=== PATIENT | male | born 1950 | race Caucasian/White ===

== ENCOUNTER 2016-11-03 15:20 | Observation (INO) | payer MEDICARE ==
[2016-11-03] MEDS ORDERED: NORMAL SALINE 1,000 ML IV ONE ×2 (16:09→17:53)
[2016-11-03] MEDS ORDERED: ONDANSETRON HCL/PF 2 MG/ML VIAL IV ONE (16:09)
--- NOTE | 2016-11-03 16:22 | ERNOTE ---
Medical Problem HPI - General Chief Complaint: Nausea/Vomiting Time Seen by Provider: 11/03/16 15:36 Source: patient Exam Limitations: no limitations - Immun/Allergies/Home Medications Immunizations: IMMUNIZATION HX Immunizations Up to Date Yes History of Influenza Vaccine Yes Allergies/Adverse Reactions: Allergies No Known Allergies Allergy (Verified 11/03/16 15:36) - History of Present History Narrative: Patient states that he has been outside in the heat over the past several days and feels as though he is markedly dehydrated. He has been having some episodes of nausea and vomiting his mouth feels excessively dry and because of this he is unable taken any oral fluids. He states he has done this before and these are very similar symptoms to whenhe gets dehydrated. Timing: constant, getting worse Severity: moderate Review of Systems - Review of Systems Constitutional: Present: See HPI EYE: Present: no symptoms reported ENT: Present: no symptoms reported Respiratory: Present: no symptoms reported Cardiology: Present: no symptoms reported Gastrointestinal/Abdominal: Present: nausea, vomiting Genitourinary: Present: no symptoms reported Musculoskeletal: Present: no symptoms reported Skin: Present: no symptoms reported Neurological: Present: no symptoms reported Endocrine: Present: no symptoms reported Hematologic/Lymphatic: Present: no symptoms reported Psych: Present: no symptoms reported - Patient's Past Medical History Patient History - Medical: Obesity Patient History - Cardiac/Respiratory: COPD Patient History - Surgical Procedures: Cholecystectomy, Total Knee Replacement Patient History - Other: None - Social History Living Situations: home Psych History: No pertinent hx Smoking Status: Never smoker Alcohol Use: none Drug Use: none - Immunizations Immunizations Up to Date: Yes History of Influenza Vaccine: Yes Physical Exam - Physical Exam General Appearance: Present: wd/wn, alert, moderate distress Eye Exam: Normal inspection: bilateral, PERRL: bilateral Ears, Nose, Throat: Present: normal pharynx, dry mucous membranes Neck: Present: normal inspection, nontender Respiratory: Present: no respiratory distress, normal breath sounds, no accessory muscle use, chest nontender, lungs clear Cardiovascular/Chest: Present: no murmur, normal peripheral pulses, tachycardia Gastrointestinal/Abdominal: Present: normal bowel sounds, nontender, nondistended, soft, no organomegaly Rectal Exam: Present: deferred Back Exam: Present: normal inspection, normal range of motion Extremity Exam: Present: normal inspection, non-tender, no edema, normal range of motion Neurological Exam: Present: alert, oriented, normal mood/affect Skin Exam: Present: normal color, warm/dry Lymphatic Exam: Present: no adenopathy ED Progress - Results and Orders Patient's Lab Results:: I have reviewed the patient's lab results. - Vital Signs Patient's Vital Signs:: I have reviewed the patient's vital signs. Vital Signs: Vital Signs 11/03/16 15:24 Temperature 36.3 C L Pulse Rate 107 H Respiratory 22 H Rate O2 Sat by Pulse 95 Oximetry - X-Ray X-Ray #1 X-Ray: chest Interpretation: Interp. by me - patient states that after the liter of IV fluids he felt better however the chest x-ray has appearance of congestive heart failure to me - Progress/Reassessment Chief Complaint: Nausea/Vomiting Plan - Plan Plan: While the patient is somewhat clinically improved he still feels weak and dehydrated. I'm somewhat perplexed by the chest x-ray that while it is a portable it still appears to have a component of congestive heart failure. Patient feels improved after a liter of fluid but still feels too weak to go home and we will place him in an observation bed for the night continue more IV hydration per his request and start him on some oral antibiotics for his chronic skin sores which appear to be folliculitis. Departure - Departure Clinical Impression: Dehydration Morbid obesity Qualifiers: Obesity type: unspecified obesity type Qualified Code(s): E66.01 - Morbid ( severe) obesity due to excess calories Disposition: [facility] Condition: Fair
[2016-11-03 16:25] LABS: Hematocrit 43.7 % (42.0-52.0); Hemoglobin 14.7 gm/dL (13.5-18.0); Mean Corpuscular Hemoglobin 30.6 pg (27-31); Mean Corpuscular Hgb Conc 33.6 g/dl (32-36); Mean Platelet Volume 9.3 fl (6.0-9.5); Neutrophil # 8.7 K/mm3 (1.3-6.0); Platelet Count 221 K/mm3 (150-450); Red Cell Distribution Width 14.4 % (11.5-14.0); White Blood Count 9.9 K/mm3 (4.0-10.5)
[2016-11-03] MEDS ORDERED: ONDANSETRON HCL/PF 2 MG/ML VIAL ONE (16:33)
[2016-11-03 16:43] LABS: Albumin * 3.5 gm/dl (3.4-5.0); Anion Gap 11.4 mmol/L (6.8-13.8); BUN/Creatinine Ratio 11.1 (9.0-21.6); Bilirubin, Total 0.6 mg/dL (0.0-1.1); Ca. Corrected For Albumin 9.5 mg/dL (8.4-10.2); Calcium * 9.4 mg/dL (7.9-10.9); Magnesium 1.8 mg/dL (1.2-2.8); Potassium 4.4 mmol/L (3.4-4.6); Total Protein 7.6 gm/dL (6.2-8.2)
[2016-11-03 16:45] LABS: Troponin I 0.048 ng/ml (0.00-0.10)
[2016-11-03 17:37] LABS: Urine Appearance Clear; Urine Color Yellow
[2016-11-03 17:38] LABS: Urine Bacteria None Seen; Urine Bilirubin Negative (NEGATIVE); Urine Blood 10 /ul (NEGATIVE); Urine Ketone 50 mg/dL (NEGATIVE); Urine Nitrite Negative (NEGATIVE); Urine Protein 100 mg/dL (NEGATIVE); Urine RBC 0-5 /hpf (0-5); Urine Urobilinogen Normal (NORMAL); Urine WBC 0-5 /hpf (0-5)
[2016-11-03] MEDS ORDERED: SULFAMETHOXAZOLE/TRIMETHOPRIM 1 TAB TABLET PO ONE (17:53)
[2016-11-03] MEDS ORDERED: SULFAMETHOXAZOLE/TRIMETHOPRIM 1 TAB TABLET ONE (18:00)
--- NOTE | 2016-11-03 20:08 | HP ---
Chief Complaint - Chief Complaint Date of Service: 11/03/16 Time of Service: 20:08 Chief Complaint: generalized weakness History of Present Illness: Grzegorz is a 66 [address] old patient of Dr Elias with a PMH of asthma, chronic back pain, chronic respiratory failure on O2, RODNEY wears bipap, morbid obesity s/p gastric bypass in 1981 and OA who presented to the ER with c/o severe weakness after vomiting repeatedly overnight the previous night. c/o body aches and chills. has chronic dyspnea with no acute increase in shortness of breath. denies cp. Patient given IV bolus in ER but felt too weak to go home. Patient to be admitted for generalized weakness and dehydration for iv fluids overnight. - Patient's Past Medical History Patient History - Medical: Depression, Obesity - morbid Patient History - Cardiac/Respiratory: COPD, Home O2 Use, CPAP/BiPAP Home Use, Sleep Apnea Patient History - Cancer: No Hx of Cancer Patient History - Surgical Procedures: Cholecystectomy, Total Knee Replacement Patient History - Other: None - Family History Father Family History - Medical: Family History - Cardiac/Respiratory: CHF Mother Family History - Medical: Alzheimer's Disease - Social History Living Situations: home Psych History: Hx of Depression Smoking Status: Never smoker Have you smoked in the past 12 months: No Do you dip or chew tobacco: No Patient requests Smoking Cessation Consult: No Alcohol Use: none Drug Use: none - Immunizations Immunizations Up to Date: Yes History of Influenza Vaccine: Yes Review Of Systems (GEN) - Review of Systems Generalized/Overall Review: Present: Weakness, Chills, Malaise, Fatigue. Absent : Fever EENTM: Present: No Symptoms Reported Respiratory: Present: Shortness of Breath - chronic. Absent: Cough, Wheezing Cardiac: Present: No Symptoms Reported Abdominal: Present: Nausea, Vomiting. Absent: Hematemesis, Abdominal Pain, Constipation, Diarrhea, Melena, Bright blood from rectum Genitourinary: Present: No Symptoms Reported Musculoskeletal: Present: No Symptoms Reported Neurological: Present: No Symptoms Reported Skin: Present: No Symptoms Reported Endocrine: Present: No Symptoms Reported Misc: All systems neg except as marked Immunizations: IMMUNIZATION HX Immunizations Up to Date Yes History of Influenza Vaccine Yes Allergies/Adverse Reactions: Allergies Allergy/AdvReac Type Severity Reaction Status Date / Time No Known Allergies Allergy Verified 11/03/16 15:36 Home Medications: HOME MEDICATIONS Diclofenac Sodium 75 mg PO BID 11/03/16 [Last Taken Unknown] Furosemide [Lasix] 40 mg PO DAILY 11/03/16 [Last Taken Unknown] Ibuprofen [Motrin] 600 mg PO TID 11/03/16 [Last Taken Unknown] Ibuprofen/Diphenhydramine HCl [Advil Pm Liqui-Gels] 1 cap PO HS 11/03/16 [Last Taken Unknown] Imipramine HCl [Tofranil] 50 mg PO QAM 11/03/16 [Last Taken Unknown] Imipramine HCl [Tofranil] 100 mg PO HS 11/03/16 [Last Taken Unknown] Multivitamin [Multivitamins] 1 each PO DAILY 11/03/16 [Last Taken Unknown] Potassium Chloride [Klor-Con M20] 20 meq PO DAILY 11/03/16 [Last Taken Unknown] Exam - Exam Vital Signs: Vital Signs - Last Taken Temp 37.0 C 11/03/16 18:15 Pulse 103 H 11/03/16 18:15 Resp 30 H 11/03/16 18:15 BP 96/77 11/03/16 18:15 Pulse Ox 94 11/03/16 18:15 Constitutional: Present: Alert, Oriented x3, Cooperative, No distress, Obese - morbid, Looks Older than stated age ENT Exam: Present: hearing grossly normal Eye Exam: bilateral eye: normal inspection Neck: Present: supple Back Exam: Present: no CVA tenderness, no vertebral tenderness Breasts: Present: Exam deferred Respiratory: Present: lungs clear, no respiratory distress, no accessory muscle use Cardiovascular/Chest: Present: normal peripheral pulses, regular rate, rhythm, no JVD, no murmur Peripheral Pulses: dorsalis-pedis (R): 2+, dorsalis-pedis (L): 2+, radial (R): 2 +, radial (L): 2+ Abdomen: Present: soft, nontender, nondistended, obese /Rectal: Present: Exam deferred Extremity: Present: lower extremity edema - trace to +1 lower extremity edema bilat Skin Exam: Present: warm/dry, no cyanosis, other - folliculitis present Diagnostic Studies: Laboratory Results WBC 9.9 K/mm3 (4.0-10.5) 11/03/16 16:18 RBC 4.80 M/mm3 (4.7-6.0) 11/03/16 16:18 Hgb 14.7 gm/dL (13.5-18.0) 11/03/16 16:18 Hct 43.7 % (42.0-52.0) 11/03/16 16:18 MCV 91.0 fl (78-100) 11/03/16 16:18 MCH 30.6 pg (27-31) 11/03/16 16:18 MCHC 33.6 g/dl (32-36) 11/03/16 16:18 RDW 14.4 % (11.5-14.0) H 11/03/16 16:18 Plt Count 221 K/mm3 (150-450) 11/03/16 16:18 MPV 9.3 fl (6.0-9.5) 11/03/16 16:18 Immature Gran % (Auto) 0.30 % (0.001-0.429) 11/03/16 16:18 Immature Gran # (Auto) 0.03 K/mm3 (0.000-0.0310) 11/03/16 16:18 Neutrophils % 88.0 % (42-75.0) H 11/03/16 16:18 Lymphocytes % 7.9 % (20-51) L 11/03/16 16:18 Monocytes % 3.7 % (0.0-9) 11/03/16 16:18 Eosinophils % 0.0 % (0.0-3.0) 11/03/16 16:18 Basophils % 0.1 % (0.0-1.0) 11/03/16 16:18 Nucleated RBC % 0.0 k/mm3 (0-1) 11/03/16 16:18 Neutrophils # 8.7 K/mm3 (1.3-6.0) H 11/03/16 16:18 Lymphocytes # 0.8 k/mm3 (1.5-3.5) L 11/03/16 16:18 Monocytes # 0.4 k/mm3 (0.0-1.0) 11/03/16 16:18 Eosinophils # 0.0 k/mm3 (0.0-0.7) 11/03/16 16:18 Absolute Basophils 0.0 k/mm3 (0.0-0.1) 11/03/16 16:18 Sodium 142 mmol/L (132-142) 11/03/16 16:18 Plasma Sodium 143 mmol/L (130-142) H 11/03/16 16:18 Potassium 4.4 mmol/L (3.4-4.6) 11/03/16 16:18 Chloride 105 mmol/L (97-106) 11/03/16 16:18 Carbon Dioxide 30.0 mmol/L (24-32.6) 11/03/16 16:18 Anion Gap 11.4 mmol/L (6.8-13.8) 11/03/16 16:18 BUN 11 mg/dL (6-23) 11/03/16 16:18 Creatinine 0.99 mg/dL (0.4-1.4) 11/03/16 16:18 Est GFR (Non-Af Amer) 81 mL/min (60-130) 11/03/16 16:18 BUN/Creatinine Ratio 11.1 (9.0-21.6) 11/03/16 16:18 Random Glucose 134 mg/dL (70-110) H 11/03/16 16:18 Calcium 9.4 mg/dL (7.9-10.9) 11/03/16 16:18 Calcium Adj for Albumin 9.5 mg/dL (8.4-10.2) 11/03/16 16:18 Magnesium 1.8 mg/dL (1.2-2.8) 11/03/16 16:18 Total Bilirubin 0.6 mg/dL (0.0-1.1) 11/03/16 16:18 AST 32 U/L (0-48) 11/03/16 16:18 ALT 39 U/L (19-67) 11/03/16 16:18 Alkaline Phosphatase 62 U/L (50-170) 11/03/16 16:18 Troponin I 0.048 ng/ml (0.00-0.10) 11/03/16 16:18 Total Protein 7.6 gm/dL (6.2-8.2) 11/03/16 16:18 Albumin 3.5 gm/dl (3.4-5.0) 11/03/16 16:18 Urine Color Yellow 11/03/16 17:19 Urine Appearance Clear 11/03/16 17:19 Urine pH 6.0 pH (5.0-7.0) 11/03/16 17:19 Ur Specific [place] 1.030 SP.GR. (1.005-1.030) 11/03/16 17:19 Urine Protein 100 mg/dL (NEGATIVE) H 11/03/16 17:19 Urine Glucose (UA) Negative mg/dL (NEGATIVE) 11/03/16 17:19 Urine Ketones 50 mg/dL (NEGATIVE) 11/03/16 17:19 Urine Blood 10 /ul (NEGATIVE) H 11/03/16 17:19 Urine Nitrate Negative (NEGATIVE) 11/03/16 17:19 Urine Bilirubin Negative mg/dl (NEGATIVE) 11/03/16 17:19 Prot Sulfosalicylic Acd 4+ mg/dL (0) H 11/03/16 17:19 Urine Urobilinogen Normal EU/dl (NORMAL) 11/03/16 17:19 Ur Leukocyte Esterase Negative /ul (NEGATIVE) 11/03/16 17:19 Urine RBC 0-5 /hpf (0-5) 11/03/16 17:19 Urine WBC 0-5 /hpf (0-5) 11/03/16 17:19 Ur Epithelial Cells 0-5 /hpf (0-5) 11/03/16 17:19 Urine Bacteria None seen (NONE) 11/03/16 17:19 Urine Culture Comments No culture indicated 11/03/16 17:19 Assessment/Plan - Narrative Narrative: Generalized weakness - troponin negative - will draw a 2nd troponin 6 hours from the first as a precaution given weakness - likely secondary to n/v overnight - hydrate with iv fluids overnight - patient states he has had episodes like this in the past and iv fluids has helped. dehydration - secondary to n/v overnight - see plan above abnormal cxr - no s/s of chf - lower extremity edema is mild and chronic per pt. - lungs sound clear - BNP drawn and not significantly elevated - cxr abnormality likely artifact due to patient's size. folliculitis - likely secondary to patient's body habitus - bactrim ds start in ER - continue while admitted. RODNEY - continue bipap while admitted chronic respiratory failure on O2 - cont O2 while admitted. Code status: DNR VTE: early ambulation GI Proph: protonix po. - Assessment/Plan (1) Dehydration Problem: Acute (2) Generalized weakness Problem: Acute (3) Abnormal CXR Problem: Acute (4) Chronic respiratory failure not affecting current episode of care Problem: Chronic (5) RODNEY treated with BiPAP Problem: Chronic (6) Morbid obesity Problem: Chronic Qualifiers: Obesity type: unspecified obesity type Qualified Code(s): E66.01 - Morbid ( severe) obesity due to excess calories (7) Folliculitis Problem: Acute
[2016-11-03] MEDS ORDERED: BELLADONNA ALKALOIDS/PHENOBARB 60 ML BTL PO ONE (20:09)
[2016-11-03] MEDS ORDERED: LIDOCAINE HCL 20 ML UDC PO ONE (20:09)
[2016-11-03] MEDS ORDERED: MAG HYDROX/ALUMINUM HYD/SIMETH 30 ML UDC PO ONE (20:09)
[2016-11-03] MEDS ORDERED: IBUPROFEN PO SCH (21:00)
[2016-11-03] MEDS ORDERED: DIPHENHYDRAMINE HCL PO SCH (21:00)
[2016-11-03] MEDS ORDERED: diphenhydrAMINE HCL 25 MG CAPSULE PO PRN (22:14)
[2016-11-03] MEDS ORDERED: IMIPRAMINE HCL 25 MG TABLET PO SCH (22:15)
[2016-11-03] MEDS ORDERED: DICLOFENAC SODIUM 50 MG TABLET.DR PO ONE (22:34)
[2016-11-03] MEDS ORDERED: MAG HYDROX/ALUMINUM HYD/SIMETH 30 ML UDC ONE (22:35)
[2016-11-03] MEDS ORDERED: LIDOCAINE HCL 20 ML UDC ONE (22:36)
[2016-11-03] MEDS ORDERED: BELLADONNA ALKALOIDS/PHENOBARB 60 ML BTL ONE (22:36)
[2016-11-03] MEDS: DICLOFENAC SODIUM 75 MG TABLET.DR PO SCH (22:41)
[2016-11-04] MEDS ORDERED: NORMAL SALINE 1,000 ML IV PRN (03:36)
[2016-11-04] MEDS: DICLOFENAC SODIUM 75 MG TABLET.DR PO SCH (08:25)
[2016-11-04 08:27] VITALS: BP 120/68
[2016-11-04] MEDS ORDERED: IMIPRAMINE HCL 25 MG TABLET PO SCH (09:00)
[2016-11-04] MEDS ORDERED: SULFAMETHOXAZOLE/TRIMETHOPRIM 1 TAB TABLET PO SCH (09:00)
[2016-11-04] MEDS ORDERED: IBUPROFEN 600 MG TABLET PO SCH (09:00)
[2016-11-04] MEDS ORDERED: FUROSEMIDE 40 MG TABLET PO SCH (09:00)
[2016-11-04] MEDS ORDERED: POTASSIUM CHLORIDE 20 MEQ TABLET.SA PO SCH (09:00)
[2016-11-04] MEDS ORDERED: MULTIVITAMINS 1 CAP CAPSULE PO SCH (09:00)
--- NOTE | 2016-11-04 09:13 | DS ---
(1) Generalized weakness Problem: Acute (2) Morbid obesity Problem: Chronic Qualifiers: Obesity type: unspecified obesity type Qualified Code(s): E66.01 - Morbid ( severe) obesity due to excess calories Description of Stay: ADMISSION DATE: 11/03/2016 DISCHARGE DATE: 11/04/2016 ADMISSION HPI by PRABHU Gorman: Grzegorz is a 66 [address] patient of Dr Elias with a PMH of asthma, chronic back pain, chronic respiratory failure on O2, RODNEY wears bipap, morbid obesity s/p gastric bypass in 1981 and OA who presented to the ER with c/o severe weakness after vomiting repeatedly overnight the previous night. c/o body aches and chills. has chronic dyspnea with no acute increase in shortness of breath. denies cp. Patient given IV bolus in ER but felt too weak to go home. Patient to be admitted for generalized weakness and dehydration for iv fluids overnight. HOSPITAL COURSE: Patient monitored overnight with no issues or concerns. Patients presentation and complaints of generalized weakness are likely multifactorial and related to the patient being a bit more active than usual on a day with temperatures over 90F, morbid obesity and severe deconditioning. The patient was started on Bactrim DS in the emergency room for suspected folliculitis. These antibiotics have been discontinued as the patients findings are chronic nature and there are no signs of acute infection. Patient was discharged home in stable condition the following morning and asked to follow-up with his primary care doctor within 1 week. FOLLOW-UP APPOINTMENTS: -PCP within 1 week NEW OR CHANGED MEDICATIONS: None DISCONTINUED MEDICATIONS: None RADIOLOGY REPORTS: Single view chest x-ray on 11/03/2016 showed: The cardiac silhouette is at least mildly enlarged. The mediastinum and hilum are within normal limits. There is prominence of the central pulmonary vascularity without alveolar edema. Lung gregory are otherwise clear. I do not see evidence for infiltrate or effusion. IMPRESSION: At least mildly enlarged cardiac silhouette. Prominence of central pulmonary vascularity consistent with pulmonary congestion /early interstitial edema. Procedures Performed: none Results and Findings: Laboratory Tests 11/03/16 11/03/16 11/03/16 16:18 16:18 16:18 WBC 9.9 Hgb 14.7 Hct 43.7 MCV 91.0 Plt Count 221 Plasma Sodium 143 H Potassium 4.4 Chloride 105 Carbon Dioxide 30.0 Anion Gap 11.4 BUN 11 Creatinine 0.99 Est GFR (Non-Af Amer) 81 BUN/Creatinine Ratio 11.1 Random Glucose 134 H Calcium 9.4 Calcium Adj for Albumin 9.5 Magnesium 1.8 Total Bilirubin 0.6 AST 32 ALT 39 Alkaline Phosphatase 62 Troponin I 0.048 B-Natriuretic Peptide 287 H Total Protein 7.6 Albumin 3.5 Urine Color Urine Appearance Urine pH Ur Specific [place] Urine Protein Urine Glucose (UA) Urine Ketones Urine Blood Urine Nitrate Urine Bilirubin Prot Sulfosalicylic Acd Urine Urobilinogen Ur Leukocyte Esterase Urine RBC Urine WBC Ur Epithelial Cells Urine Bacteria 11/03/16 11/03/16 17:19 22:40 WBC Hgb Hct MCV Plt Count Plasma Sodium Potassium Chloride Carbon Dioxide Anion Gap BUN Creatinine Est GFR (Non-Af Amer) BUN/Creatinine Ratio Random Glucose Calcium Calcium Adj for Albumin Magnesium Total Bilirubin AST ALT Alkaline Phosphatase Troponin I 0.074 B-Natriuretic Peptide Total Protein Albumin Urine Color Yellow Urine Appearance Clear Urine pH 6.0 Ur Specific [place] 1.030 Urine Protein 100 H Urine Glucose (UA) Negative Urine Ketones 50 Urine Blood 10 H Urine Nitrate Negative Urine Bilirubin Negative Prot Sulfosalicylic Acd 4+ H Urine Urobilinogen Normal Ur Leukocyte Esterase Negative Urine RBC 0-5 Urine WBC 0-5 Ur Epithelial Cells 0-5 Urine Bacteria None seen Discharge Disposition: Home self care Disposition: Home self-care Condition: Stable Discharge Activity: Activity as tolerated Discharge Diet: Other - Heart healthy diet Additional Patient Instructions (free text): Follow-up with PCP within 1 week Complete Home Medications List: Complete Home Medication List: Diclofenac Sodium 75 mg PO BID 11/03/16 Furosemide [Lasix] 40 mg PO DAILY 11/03/16 Ibuprofen [Motrin] 600 mg PO TID 11/03/16 Ibuprofen/Diphenhydramine HCl [Advil Pm Liqui-Gels] 1 cap PO HS 11/03/16 Imipramine HCl [Tofranil] 50 mg PO QAM 11/03/16 Imipramine HCl [Tofranil] 100 mg PO HS 11/03/16 Multivitamin [Multivitamins] 1 each PO DAILY 11/03/16 Potassium Chloride [Klor-Con M20] 20 meq PO DAILY 11/03/16
[2016-11-04] MEDS ORDERED: diphenhydrAMINE HCL 25 MG CAPSULE PO SCH (21:00)
== END 2016-11-04 11:36 | disposition home or self-care (01) ==
LOC: ER 15:20 → MS 17:50
PROVIDERS: ADMIT Internal Medicine; ATTEND Internal Medicine
DX: E86.0 Dehydration (principal); E66.01 Morbid (severe) obesity due to excess calories; T67.8XXA Other effects of heat and light, initial encounter; L73.9 Follicular disorder, unspecified; G47.33 Obstructive sleep apnea (adult) (pediatric); J44.9 Chronic obstructive pulmonary disease, unspecified; J45.909 Unspecified asthma, uncomplicated; R91.8 Other nonspecific abnormal finding of lung field
CPT/HCPCS: 36415; 71010; 80053; 81001; 83735; 83880; 84484; 85025; 93005; 94660; 96361; 96374; 99284; G0378; J2405

== ENCOUNTER 2018-06-18 13:06 | Inpatient (IN) ==
[2018-06-18 13:44] LABS: Hemoglobin 12.9 gm/dL (13.5-18.0); Mean Cell Volume 88.4 fl (78-100); Mean Corpuscular Hgb Conc 33.9 g/dl (32-36); Mean Platelet Volume 10.6 fl (8-11.3); Platelet Count 112 K/mm3 (150-450); Red Cell Distribution Width 14.9 % (11.5-14.0); White Blood Count 13.8 K/mm3 (4.0-10.5)
[2018-06-18 13:52] LABS: Total Cells Counted 100
[2018-06-18 14:03] LABS: Atypical (Reactive) Lymph 5 % (0-2); Band 8 % (0-2.0); Lymphocyte 6 % (20-51); Monocyte 4 % (0-9); Neutrophil 77 % (42-75); Neutrophil # 10.6 K/mm3 (1.3-6.0); Platelet Estimate Normal (NORMAL); RBC Morphology Normal (NORMAL)
[2018-06-18 14:08] LABS: Albumin * 2.3 gm/dl (3.4-5.0); Anion Gap 15.7 mmol/L (6.8-13.8); Bilirubin, Total 4.3 mg/dL (0.0-1.1); Ca. Corrected For Albumin 10.2 mg/dL (8.4-10.2); Calcium * 9.2 mg/dL (7.9-10.9); Carbon Dioxide 25.3 mmol/L (24-32.6); Total Protein 6.4 gm/dL (6.2-8.2)
[2018-06-18 14:09] LABS: Troponin I 0.039 ng/mL (0.00-0.10)
[2018-06-18] MEDS ORDERED: ALBUTEROL SULFATE 2.5 MG/0.5 ML VIAL.NEB IH ONE (14:33)
[2018-06-18] MEDS ORDERED: FUROSEMIDE 10 MG/ML VIAL IV ONE (14:53)
[2018-06-18] MEDS ORDERED: LEVOFLOXACIN IN DEXTROSE 5 % 500 MG/100 ML BAG IV SCH (15:00)
--- NOTE | 2018-06-18 15:26 | ERNOTE ---
Dyspnea - Date Date of Service: 06/18/18 - General Presenting Symptoms: shortness of breath Time Seen by Provider: 06/18/18 13:28 Source: patient Exam Limitations: no limitations - Immun/Allergies/Home Medications Immunizations: IMMUNIZATION HX Immunizations Up to Date Yes History of Influenza Vaccine No Hx Pneumococcal Vaccination No Allergies/Adverse Reactions: Allergies No Known Allergies Allergy (Verified 06/18/18 13:19) Home Medications: HOME MEDICATIONS Diclofenac Sodium 75 mg PO BID 11/03/16 [Last Taken 09/07/17] Furosemide [Lasix] 40 mg PO DAILY 11/03/16 [Last Taken 09/07/17] Imipramine HCl [Tofranil] 100 mg PO BID 11/03/16 [Last Taken 09/07/17] Pseudoephedrine HCl [Sudogest] 60 mg PO BID PRN 08/22/17 [Last Taken 09/07/17] - History of Present Illness Narrative: Patient increasingly SOB over the last 10 days. Cough, thick sputum. Gradually more SOB. no chest pain. Exertion makes this worse. Is on home oxygen. Today was so SOB he called EMS. EMS gave treatment and NRB, brought to ED. Normally on 2 L NC, here on 4L 92%. No increased leg swelling. Severity: moderate Treatment [employer] APPRENTICE: paramedics Initiating event: Reports: upper resp illness Frequency of episodes: Reports: occassional episodes Modifying Factors - (Improves): Reports: nothing Modifying Factors (Worsens): Reports: other - exertion Associated Symptoms-Dyspnea: Reports: other - generalized weakness. Denies: fever/chills Prior Treatment: Denies: recently hospitalized, currently on antibiotics Review of Systems - Review of Systems Constitutional: Absent: fever ENT: Absent: sore throat Respiratory: Present: shortness of breath, cough Cardiology: Absent: chest pain Gastrointestinal/Abdominal: Absent: abdominal pain Neurological: Present: See HPI All Other Systems: All systems neg except as marked Medical History (Last Reviewed 06/18/18 @ 15:22 by Chris Ireland MD) Arthritis Depression Hypertension Surgical History: Surgical History (Last Reviewed 06/18/18 @ 15:22 by Chris Ireland MD) History of cholecystectomy History of gastric bypass Social History: Preferred Language [place] Smoking Status Never smoker Abuse History No History of abuse Psych History Hx of Anxiety,Hx of Depression Alcohol Use rarely Drug Use none No Social History Section defined Physical Exam - Physical Exam General Appearance: Present: alert, other - mild tachypnea Head Exam: Present: normal inspection, no evidence of injury Eye Exam: Normal inspection: bilateral, PERRL: bilateral Ears, Nose, Throat: Present: normal ENT inspection Neck: Present: normal inspection Respiratory: Present: chest nontender, other - no active wheezes, mild tachypnea, no other distress Cardiovascular/Chest: Present: regular rate, rhythm, normal peripheral pulses Gastrointestinal/Abdominal: Present: normal bowel sounds, nontender, soft Back Exam: Present: other - difficult exam Extremity Exam: Present: pedal edema Neurological Exam: Present: alert, other - no acute unilateral focal motor or sensory deifcits Skin Exam: Present: normal color, warm/dry Progress - Results and Orders Patient's Lab Results:: I have reviewed the patient's lab results. - Vital Signs Patient's Vital Signs:: I have reviewed the patient's vital signs. Vital Signs: Vital Signs 06/18/18 13:06 06/18/18 13:14 06/18/18 13:21 Temperature 37.3 C Pulse Rate 93 94 Respiratory Rate 22 H Blood Pressure 104/59 O2 Sat by Pulse Oximetry 87 L 93 06/18/18 13:55 06/18/18 14:10 06/18/18 14:30 Temperature Pulse Rate 90 92 93 Respiratory Rate 13 22 H 23 H Blood Pressure 106/55 108/57 105/63 O2 Sat by Pulse Oximetry 93 92 L 94 06/18/18 14:54 Temperature Pulse Rate 93 Respiratory Rate 23 H Blood Pressure O2 Sat by Pulse Oximetry 93 - EKG EKG #1 EKG: NSR EKG read: Interp. by me EKG Comments: NSR rate 96. PVC. Non-specific, no clear evidenc eof STEMI - X-Ray X-Ray #1 X-Ray: chest Interpretation: Interp. by me X-ray Comments: I reviewed official radiology report - Progress/Reassessment Chief Complaint: Dyspnea Progress Note-Subjective: 06/18/18 15:24 Patietn given IV lasix and IV ABx. D/W Dr Alston who will admit. No need at this time for BiPap, sats low 90s on 4L . patient agreeable. Departure Clinical Impression: JANIA (acute kidney injury), Pneumonia, Acute hypoxemic respiratory failure - Departure Disposition: Still a patient Condition: Fair
--- NOTE | 2018-06-18 17:40 | HP ---
Chief Complaint - Chief Complaint Date of Service: 06/18/18 Time of Service: 17:39 Chief Complaint: Shortness of breath, cough History of Present Illness: Grzegorz is a 68 yo male with chronic respiratory failure secondary to Pickwickian Syndrome and potentially COPD and Obstructive Sleep Apnea. He wears 2lpm of oxygen continuous and bipap at night with 2lpm of oxygen. He reports about a week ago he fell outside on the ice and was unable to get up for about 20 minutes. 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 He reports since then he has had progressive cough, shortness of breath, chills, and weakness. He reports he has been urinating normally and drinking fluids like normal. He presented to the ER today due to worsening respiratory symptoms. Chest xray in the ER shows Left infiltrate. Labs show acute kidney injury with a creatinine of 3.4. His last known baseline was 1. Medical History (Last Updated 06/18/18 @ 17:54 by Sommer Alegria RN) Arthritis Arthropathy of left knee Arthropathy of right knee Arthropathy of shoulder region COPD (chronic obstructive pulmonary disease) Depression Hypertension Osteoarthritis Surgical History: Surgical History (Last Reviewed 06/18/18 @ 17:53 by Sommer Alegria RN) H/O cataract removal with insertion of prosthetic lens History of cholecystectomy History of gastric bypass Family History: Family History (Last Updated 06/18/18 @ 17:54 by Sommer Alegria RN) Brother Pneumonia Social History: Preferred Language Yoruba Smoking Status Never smoker Abuse History No History of abuse Psych History Hx of Anxiety,Hx of Depression Alcohol Use rarely Drug Use none No Social History Section defined Review Of Systems (GEN) - Review of Systems Generalized/Overall Review: Present: Weakness, Chills. Absent: Fever EENTM: Present: No Symptoms Reported Respiratory: Present: Cough, Shortness of Breath Cardiac: Present: Chest Pain, Edema. Absent: Palpitations Abdominal: Absent: Nausea, Vomiting, Abdominal Pain Genitourinary: Present: Frequency Musculoskeletal: Present: Joint Pain, Muscle Pain Neurological: Present: No Symptoms Reported Skin: Present: No Symptoms Reported Endocrine: Present: No Symptoms Reported Immunizations: IMMUNIZATION HX Immunizations Up to Date Yes History of Influenza Vaccine No Hx Pneumococcal Vaccination No Allergies/Adverse Reactions: Allergies Allergy/AdvReac Type Severity Reaction Status Date / Time No Known Allergies Allergy Verified 06/18/18 17:55 Home Medications: HOME MEDICATIONS Diclofenac Sodium 75 mg PO BID 11/03/16 [Last Taken 09/07/17] Furosemide [Lasix] 40 mg PO DAILY 11/03/16 [Last Taken 09/07/17] Imipramine HCl [Tofranil] 100 mg PO BID 11/03/16 [Last Taken 09/07/17] Pseudoephedrine HCl [Sudogest] 60 mg PO BID PRN 08/22/17 [Last Taken 09/07/17] Acetaminophen with Codeine [Tylenol with Codeine #3 Tablet] 1 - 2 tab PO Q6H PRN 06/18/18 [Last Taken Unknown] Ibuprofen [Motrin] 800 mg PO TID 06/18/18 [Last Taken 06/18/18] Exam - Exam Vital Signs: Vital Signs - Last Taken Temp 37.3 C 06/18/18 13:14 Pulse 90 06/18/18 15:31 Resp 20 06/18/18 15:31 BP 117/63 06/18/18 15:31 Pulse Ox 95 06/18/18 15:31 Constitutional: Present: Alert, Oriented x3, Cooperative, Morbidly obese - BMI 59 ENT Exam: Present: hearing grossly normal Eye Exam: bilateral eye: normal inspection Respiratory: Present: decreased breath sounds - on left Cardiovascular/Chest: Present: regular rate, rhythm, no murmur Abdomen: Present: Normal bowel sounds, soft, nontender, obese Skin Exam: Present: normal color, warm/dry, no cyanosis Eye contact: Present: cooperative, good eye contact, normal speech Thoughts: Present: normal thought pattern, no apparent hallucination Diagnostic Studies: Abnormal Lab Results 06/18/18 06/18/18 06/18/18 Range/Units 13:38 13:38 14:29 WBC 13.8 H (4.0-10.5) K/mm3 RBC 4.30 L (4.7-6.0) M/mm3 Hgb 12.9 L (13.5-18.0) gm/dL Hct 38.0 L (42.0-52.0) % RDW 14.9 H (11.5-14.0) % Plt Count 112 L (150-450) K/mm3 Neutrophils % (Manual) 77 H (42-75) % Band Neuts % (Manual) 8 H (0-2.0) % Lymphocytes % (Manual) 6 L (20-51) % Neutrophils # (Manual) 10.6 H (1.3-6.0) K/mm3 Lymphocytes # (Manual) 0.8 L (1.5-3.5) k/mm3 Atypic/Reactive Lymphs 5 H (0-2) % pO2 54.2 L (83.0-108.0) mmHg Total CO2 25.0 H (19.0-24.0) mmol/L Base Excess -2.7 L (-2.0-3.0) mmol/L ABG pH 7.33 L (7.35-7.45) ABG O2 Sat (Measured) 85.7 L (94.0-98.0) % Sodium 130 L (132-142) mmol/L Chloride 93 L (97-106) mmol/L Anion Gap 15.7 H (6.8-13.8) mmol/L BUN 38 H (6-23) mg/dL Creatinine 3.45 H (0.4-1.4) mg/dL Est GFR (Non-Af Amer) 19 L D (60-130) mL/min Total Bilirubin 4.3 H (0.0-1.1) mg/dL B-Natriuretic Peptide 7775 H (5-350) pg/mL Albumin 2.3 L (3.4-5.0) gm/dl Laboratory Results WBC 13.8 K/mm3 (4.0-10.5) H 06/18/18 13:38 RBC 4.30 M/mm3 (4.7-6.0) L 06/18/18 13:38 Hgb 12.9 gm/dL (13.5-18.0) L 06/18/18 13:38 Hct 38.0 % (42.0-52.0) L 06/18/18 13:38 MCV 88.4 fl (78-100) 06/18/18 13:38 MCH 30.0 pg (27-31) 06/18/18 13:38 MCHC 33.9 g/dl (32-36) 06/18/18 13:38 RDW 14.9 % (11.5-14.0) H 06/18/18 13:38 Plt Count 112 K/mm3 (150-450) L 06/18/18 13:38 MPV 10.6 fl (8-11.3) 06/18/18 13:38 Neutrophils % (Manual) 77 % (42-75) H 06/18/18 13:38 Band Neuts % (Manual) 8 % (0-2.0) H 06/18/18 13:38 Lymphocytes % (Manual) 6 % (20-51) L 06/18/18 13:38 Monocytes % (Manual) 4 % (0-9) 06/18/18 13:38 Neutrophils # (Manual) 10.6 K/mm3 (1.3-6.0) H 06/18/18 13:38 Lymphocytes # (Manual) 0.8 k/mm3 (1.5-3.5) L 06/18/18 13:38 Monocytes # (Manual) 0.6 k/mm3 (0.0-1.0) 06/18/18 13:38 Atypic/Reactive Lymphs 5 % (0-2) H 06/18/18 13:38 Platelet Estimate Normal (NORMAL) 06/18/18 13:38 RBC Morphology Normal (NORMAL) 06/18/18 13:38 pCO2 46.1 mmHg (35.0-48.0) 06/18/18 14:29 pO2 54.2 mmHg (83.0-108.0) L 06/18/18 14:29 HCO3 23.5 mmol/L (21.0-28.0) 06/18/18 14:29 Total CO2 25.0 mmol/L (19.0-24.0) H 06/18/18 14:29 Base Excess -2.7 mmol/L (-2.0-3.0) L 06/18/18 14:29 ABG pH 7.33 (7.35-7.45) L 06/18/18 14:29 ABG O2 Sat (Measured) 85.7 % (94.0-98.0) L 06/18/18 14:29 Sodium 130 mmol/L (132-142) L 06/18/18 13:38 Plasma Sodium 130 mmol/L (130-142) 06/18/18 13:38 Potassium 4.0 mmol/L (3.4-4.6) 06/18/18 13:38 Chloride 93 mmol/L (97-106) L 06/18/18 13:38 Carbon Dioxide 25.3 mmol/L (24-32.6) 06/18/18 13:38 Anion Gap 15.7 mmol/L (6.8-13.8) H 06/18/18 13:38 BUN 38 mg/dL (6-23) H 06/18/18 13:38 Creatinine 3.45 mg/dL (0.4-1.4) H 06/18/18 13:38 Est GFR (Non-Af Amer) 19 mL/min (60-130) L D 06/18/18 13:38 BUN/Creatinine Ratio 11.0 (9.0-21.6) 06/18/18 13:38 Random Glucose 104 mg/dL (70-110) 06/18/18 13:38 Calcium 9.2 mg/dL (7.9-10.9) 06/18/18 13:38 Calcium Adj for Albumin 10.2 mg/dL (8.4-10.2) 06/18/18 13:38 Total Bilirubin 4.3 mg/dL (0.0-1.1) H 06/18/18 13:38 AST 41 U/L (0-48) 06/18/18 13:38 ALT 34 U/L (19-67) 06/18/18 13:38 Alkaline Phosphatase 168 U/L (50-170) 06/18/18 13:38 Troponin I 0.039 ng/mL (0.00-0.10) 06/18/18 13:38 B-Natriuretic Peptide 7775 pg/mL (5-350) H 06/18/18 13:38 Total Protein 6.4 gm/dL (6.2-8.2) 06/18/18 13:38 Albumin 2.3 gm/dl (3.4-5.0) L 06/18/18 13:38 Assessment/Plan - Narrative Narrative: Grzegorz is a 68 yo male with: 1) Left Upper Lobe Pneumonia - Initially given levaquin in the ER. However I am concerned about dosing of levaquin with renal function. Will change antibiotics to rocephin and azithromycin. Blood cultures pending. Will get cornet and incentive spirometer. 2) Acute Kidney Injury - Will treat with IV fluids and monitor. He reports drinking normal amount of fluids. He was down on the ice for 20 minutes, will check CK with next lab draw. Treatment for rhabdo would be the same with IV fluids. If renal function does not improve with fluids as expected will need to further evaluate with imaging. Could also be secondary to infection. 3) Social - Expect >2 midnights for treatment with IV antibiotics, fluids, and to monitor response. Acute kidney injury is significant that I expect this will take 3-5 days of treatment. - Assessment/Plan (1) Pneumonia Problem: Acute Qualifiers: Pneumonia type: due to unspecified organism Laterality: left Lung location: upper lobe of lung Qualified Code(s): J18.1 - Lobar pneumonia, unspecified organism (2) JANIA (acute kidney injury) Problem: Acute (3) Chronic respiratory failure Problem: Chronic Qualifiers: Respiratory failure complication: hypoxia and hypercapnia Qualified Code(s): J96.11 - Chronic respiratory failure with hypoxia; J96.12 - Chronic respiratory failure with hypercapnia (4) Pickwickian syndrome Problem: Chronic (5) Morbid obesity Problem: Chronic (6) RODNEY treated with BiPAP Problem: Chronic
[2018-06-18] MEDS: NORMAL SALINE 1,000 ML IV PRN (18:42)
[2018-06-19] MEDS: NORMAL SALINE 1,000 ML IV PRN ×3 (00:50→15:32)
[2018-06-19] MEDS: AZITHROMYCIN 500 MG in DEXTROSE 5 % IN WATER 250 ML IV SCH ×4 (00:52→18:52)
[2018-06-19] MEDS: IMIPRAMINE HCL 25 MG TABLET PO SCH ×4 (03:10→22:47)
[2018-06-19] MEDS ORDERED: ALBUTEROL SULFATE/IPRATROPIUM 3 ML NEBU IH PRN (08:43)
[2018-06-19] MEDS ORDERED: ALBUTEROL SULFATE/IPRATROPIUM 3 ML NEBU IH SCH (08:45)
[2018-06-19 08:47] LABS: Hemoglobin 13.8 gm/dL (13.5-18.0); Mean Cell Volume 87.9 fl (78-100); Mean Corpuscular Hemoglobin 30.3 pg (27-31); Mean Corpuscular Hgb Conc 34.5 g/dl (32-36); Mean Platelet Volume 10.5 fl (8-11.3); Platelet Count 139 K/mm3 (150-450); Red Blood Count 4.55 M/mm3 (4.7-6.0); White Blood Count 15.6 K/mm3 (4.0-10.5)
[2018-06-19 08:50] LABS: Total Cells Counted 100
[2018-06-19] MEDS ORDERED: ACETAMINOPHEN 500 MG TABLET PO PRN (08:56)
[2018-06-19 09:01] LABS: Atypical (Reactive) Lymph 1 % (0-2); Band 21 % (0-2.0); Lymphocyte 9 % (20-51); Monocyte 2 % (0-9); Neutrophil 67 % (42-75); Neutrophil # 10.5 K/mm3 (1.3-6.0)
[2018-06-19 09:02] LABS: Dohle Bodies 3+; Platelet Estimate Normal (NORMAL); Toxic Granulation 2+
[2018-06-19] MEDS: ALBUTEROL SULFATE/IPRATROPIUM 3 ML NEBU IH SCH ×3 (09:02→19:38)
[2018-06-19 09:07] LABS: Albumin * 2.3 gm/dl (3.4-5.0); Anion Gap 16.6 mmol/L (6.8-13.8); BUN/Creatinine Ratio 12.2 (9.0-21.6); Bilirubin, Total 5.2 mg/dL (0.0-1.1); Ca. Corrected For Albumin 10.3 mg/dL (8.4-10.2); Calcium * 9.3 mg/dL (7.9-10.9); Carbon Dioxide 24.5 mmol/L (24-32.6); Potassium 4.1 mmol/L (3.4-4.6)
--- NOTE | 2018-06-19 09:12 | PN ---
Subjective - Date and Time Seen Date: 06/19/18 Time: 08:57 Subjective Narrative: Grzegorz reports no bowel movement for 4 days. He reports shortness of breath and cough are the same. Nursing reports some confusion this morning. No fever or reported pain. Objective - Vitals Vitals: Last Vital Signs Temp 36.7 C 06/19/18 06:30 Pulse 87 06/19/18 06:30 Resp 20 06/19/18 06:30 BP 142/66 06/19/18 06:30 Pulse Ox 98 06/19/18 06:30 - Abnormal Lab Findings Abnormal Lab Findings: Abnormal Lab Results 06/18/18 06/18/18 06/18/18 Range/Units 13:38 13:38 14:29 WBC 13.8 H (4.0-10.5) K/mm3 RBC 4.30 L (4.7-6.0) M/mm3 Hgb 12.9 L (13.5-18.0) gm/dL Hct 38.0 L (42.0-52.0) % RDW 14.9 H (11.5-14.0) % Plt Count 112 L (150-450) K/mm3 Neutrophils % (Manual) 77 H (42-75) % Band Neuts % (Manual) 8 H (0-2.0) % Lymphocytes % (Manual) 6 L (20-51) % Neutrophils # (Manual) 10.6 H (1.3-6.0) K/mm3 Lymphocytes # (Manual) 0.8 L (1.5-3.5) k/mm3 Atypic/Reactive Lymphs 5 H (0-2) % pO2 54.2 L (83.0-108.0) mmHg Total CO2 25.0 H (19.0-24.0) mmol/L Base Excess -2.7 L (-2.0-3.0) mmol/L ABG pH 7.33 L (7.35-7.45) ABG O2 Sat (Measured) 85.7 L (94.0-98.0) % Sodium 130 L (132-142) mmol/L Chloride 93 L (97-106) mmol/L Anion Gap 15.7 H (6.8-13.8) mmol/L BUN 38 H (6-23) mg/dL Creatinine 3.45 H (0.4-1.4) mg/dL Est GFR (Non-Af Amer) 19 L D (60-130) mL/min Total Bilirubin 4.3 H (0.0-1.1) mg/dL B-Natriuretic Peptide 7775 H (5-350) pg/mL Albumin 2.3 L (3.4-5.0) gm/dl 06/19/18 Range/Units 08:35 WBC 15.6 H (4.0-10.5) K/mm3 RBC 4.55 L (4.7-6.0) M/mm3 Hgb (13.5-18.0) gm/dL Hct 40.0 L (42.0-52.0) % RDW 15.0 H (11.5-14.0) % Plt Count 139 L (150-450) K/mm3 Neutrophils % (Manual) (42-75) % Band Neuts % (Manual) (0-2.0) % Lymphocytes % (Manual) (20-51) % Neutrophils # (Manual) (1.3-6.0) K/mm3 Lymphocytes # (Manual) (1.5-3.5) k/mm3 Atypic/Reactive Lymphs (0-2) % pO2 (83.0-108.0) mmHg Total CO2 (19.0-24.0) mmol/L Base Excess (-2.0-3.0) mmol/L ABG pH (7.35-7.45) ABG O2 Sat (Measured) (94.0-98.0) % Sodium (132-142) mmol/L Chloride (97-106) mmol/L Anion Gap (6.8-13.8) mmol/L BUN (6-23) mg/dL Creatinine (0.4-1.4) mg/dL Est GFR (Non-Af Amer) (60-130) mL/min Total Bilirubin (0.0-1.1) mg/dL B-Natriuretic Peptide (5-350) pg/mL Albumin (3.4-5.0) gm/dl - Exam Constitutional: Present: Alert, Oriented x3, Cooperative ENT Exam: Present: hearing grossly normal Respiratory: Present: decreased breath sounds - left lung Cardiovascular/Chest: Present: regular rate, rhythm, no murmur Abdomen: Present: soft, nontender Skin Exam: Present: normal color, warm/dry, no cyanosis Eye contact: Present: cooperative, good eye contact, normal speech Thoughts: Present: normal thought pattern, no apparent hallucination Assessment/Plan Plan Narrative: Grzegorz is a 68 yo male with: 1) Left Upper Lobe Pneumonia - Continue rocephin/azithromycin, duoneb, cornet, incentive spirometer. Blood cultures with prelim growth 2) Acute Kidney Injury - Will treat with IV fluids and monitor. Likely combination of infection, ibuprofen, diclofenac, and lasix use. 3) Bacteremia - Continue antibiotics for now, adjust based on cultures. He does not appear septic. 4) Social - Anticipate 2-4 more days of inpatient. - Problems/Diagnosis (1) Pneumonia Problem: Acute Qualifiers: Pneumonia type: due to unspecified organism Laterality: left Lung location: upper lobe of lung Qualified Code(s): J18.1 - Lobar pneumonia, unspecified organism (2) JANIA (acute kidney injury) Problem: Acute (3) Bacteremia Problem: Acute (4) Chronic respiratory failure Problem: Chronic Qualifiers: Respiratory failure complication: hypoxia and hypercapnia Qualified Code(s): J96.11 - Chronic respiratory failure with hypoxia; J96.12 - Chronic respiratory failure with hypercapnia (5) Pickwickian syndrome Problem: Chronic (6) Morbid obesity Problem: Chronic (7) RODNEY treated with BiPAP Problem: Chronic
[2018-06-19] MEDS: SENNOSIDES/DOCUSATE SODIUM 1 TAB TABLET PO SCH ×2 (09:36→22:47)
[2018-06-20] MEDS: ALBUTEROL SULFATE/IPRATROPIUM 3 ML NEBU IH SCH ×2 (00:27→06:03)
[2018-06-20] MEDS: NORMAL SALINE 1,000 ML IV PRN (01:31)
[2018-06-20] MEDS: FUROSEMIDE 10 MG/ML VIAL IV SCH ×3 (02:38→09:02)
[2018-06-20] MEDS ORDERED: SODIUM BICARBONATE 1 MEQ/ML SYRG IV ONE (08:48)
[2018-06-20] MEDS ORDERED: MORPHINE SULFATE 2 MG/ML DISP.SYRIN IV STA (09:13)
[2018-06-20 09:41] LABS: Hematocrit 39.4 % (42.0-52.0); Hemoglobin 13.6 gm/dL (13.5-18.0); Mean Cell Volume 87.2 fl (78-100); Mean Corpuscular Hemoglobin 30.1 pg (27-31); Mean Corpuscular Hgb Conc 34.5 g/dl (32-36); Mean Platelet Volume 10.1 fl (8-11.3); Neutrophil # 17.7 K/mm3 (1.3-6.0); Platelet Count 170 K/mm3 (150-450); Red Blood Count 4.52 M/mm3 (4.7-6.0); Red Cell Distribution Width 15.3 % (11.5-14.0); White Blood Count 20.1 K/mm3 (4.0-10.5)
[2018-06-20 09:54] LABS: Albumin * 2.3 gm/dl (3.4-5.0); Anion Gap 17.1 mmol/L (6.8-13.8); BUN/Creatinine Ratio 15.2 (9.0-21.6); Bilirubin, Total 4.7 mg/dL (0.0-1.1); Carbon Dioxide 24.3 mmol/L (24-32.6); Potassium 4.4 mmol/L (3.4-4.6); Total Protein 6.9 gm/dL (6.2-8.2)
[2018-06-20] MEDS ORDERED: VANCOMYCIN HCL 1.5 GM in DEXTROSE 5 % IN WATER 500 ML IV SCH ×2 (10:00)
[2018-06-20] MEDS: SENNOSIDES/DOCUSATE SODIUM 1 TAB TABLET PO SCH (10:47)
[2018-06-20] MEDS: IMIPRAMINE HCL 25 MG TABLET PO SCH (10:47)
--- NOTE | 2018-06-20 10:49 | DS ---
Transfer Discharge Summary - Diagnosis(s)/Problems (1) Metabolic acidosis Narrative: The setting of acute renal failure. He has been given 1 dose of bicarbonate. Problem: Acute (2) JANIA (acute kidney injury) Narrative: Renal function continues to worsen. Etiology unclear. Patient may require dialysis if renal function continues to worsen. Problem: Acute (3) Acute hypoxemic respiratory failure Narrative: Hypoxia improved with BiPAP continue BiPAP. Problem: Acute (4) Bacteremia Narrative: Preliminary blood cultures are growing coag positive staph. He has received 1 dose of vancomycin. Problem: Acute (5) Pneumonia Narrative: Patient has chest x-ray showing consolidation bilaterally. Continue ceftriaxone and azithromycin. Problem: Acute (6) Pickwickian syndrome Problem: Chronic (7) Sepsis Problem: Acute (8) Hyponatremia Problem: Acute - Course Description of Stay: 68-year-old male with a past medical history of chronic respiratory failure secondary to pickwickian syndrome, questionable COPD and obstructive sleep apnea. He is oxygen dependent and uses 2 L of oxygen at all times. He is using BiPAP at night. He presents with shortness of breath cough, weakness, chills. Chest x-ray shows left upper lobe infiltrate. He was started on ceftriaxone and azithromycin. He is also found to have acute kidney injury with creatinine at of 3.4, baseline is 1. During his stay the patient started to decline. He developed respiratory distress and was placed on BiPAP. ABG showed metabolic acidosis with pH of 7.1. Patient became confused and was pulling the BiPAP off. He received 1 dose of bicarb and 1 dose. Repeat chest x-ray showed a new infiltrate on the right and vascular congestion. IV fluids were stopped and the patient was given Lasix 40 mg IV x2 doses. He received 1 dose of of 2 mg morphine to help him with shortness of breath and agitation. He became tachypneic into the 30s. Today renal function continues to worsen and creatinine has bumped up to 4. White count is also increased to 20 preliminary blood cultures are growing gram of coag-positive staph. He was given 1 dose of vancomycin. Due to his worsening renal function and poor respiratory status we will transfer the patient to [facility] for a nephrology evaluation. He may also require pulmonary evaluation. Procedures Performed: none - Results and Findings Results and Findings: Laboratory Results - last 24 hr 06/20/18 06/20/18 06/20/18 01:07 02:20 07:27 WBC RBC Hgb Hct MCV MCH MCHC RDW Plt Count MPV Immature Gran % (Auto) Immature Gran # (Auto) Neutrophils % Lymphocytes % Monocytes % Eosinophils % Basophils % Nucleated RBC % Neutrophils # Lymphocytes # Monocytes # Eosinophils # Absolute Basophils pCO2 54.0 H 49.0 H 48.8 H pO2 56.6 L 73.4 L 65.0 L HCO3 18.8 L 18.6 L 18.4 L Total CO2 20.5 20.1 19.9 Base Excess -10.1 L -9.5 L -9.8 L ABG pH 7.16 L* 7.20 L 7.19 L ABG O2 Sat (Measured) 80.8 L 91.2 L 87.7 L Sodium Plasma Sodium Potassium Chloride Carbon Dioxide Anion Gap BUN Creatinine Est GFR (Non-Af Amer) BUN/Creatinine Ratio Random Glucose Calcium Calcium Adj for Albumin Total Bilirubin AST ALT Alkaline Phosphatase Total Protein Albumin 06/20/18 06/20/18 09:35 09:35 WBC 20.1 H D RBC 4.52 L Hgb 13.6 Hct 39.4 L MCV 87.2 MCH 30.1 MCHC 34.5 RDW 15.3 H Plt Count 170 MPV 10.1 Immature Gran % (Auto) 2.00 H Immature Gran # (Auto) 0.41 H Neutrophils % 88.0 H Lymphocytes % 5.9 L Monocytes % 3.8 Eosinophils % 0.0 Basophils % 0.3 Nucleated RBC % 0.0 Neutrophils # 17.7 H Lymphocytes # 1.18 L Monocytes # 0.8 Eosinophils # 0.0 Absolute Basophils 0.1 pCO2 pO2 HCO3 Total CO2 Base Excess ABG pH ABG O2 Sat (Measured) Sodium 128 L Plasma Sodium 128 L Potassium 4.4 Chloride 91 L Carbon Dioxide 24.3 Anion Gap 17.1 H BUN 61 H Creatinine 4.01 H Est GFR (Non-Af Amer) 16 L BUN/Creatinine Ratio 15.2 Random Glucose 102 Calcium 9.0 Calcium Adj for Albumin 10.0 Total Bilirubin 4.7 H AST 92 H ALT 51 Alkaline Phosphatase 205 H Total Protein 6.9 Albumin 2.3 L - Medications Medications: Active Medications Acetaminophen (Tylenol) 1,000 mg PO Q6H PRN PRN Reason: Mild pain (pain scale 1-3) Stop: 07/19/18 08:57 Last Admin: 06/19/18 13:01 Dose: 1,000 mg Documented by: Albuterol/Ipratropium (Duoneb 2.5-0.5mg/3ml Soln) 3 ml IH Q6HRT [facility] Stop: 07/19/18 08:46 Last Admin: 06/20/18 06:03 Dose: 3 ml Documented by: Furosemide (Lasix) 40 mg IV BID [facility] Stop: 07/20/18 02:16 Last Admin: 06/20/18 09:02 Dose: Not Given Documented by: Azithromycin 500 mg/ Dextrose/ (Water) 250 mls @ 250 mls/hr IV Q24H FARIDE[facility]; Protocol Stop: 07/18/18 18:01 Last Infusion: 06/19/18 19:52 Dose: Infused Documented by: Ceftriaxone Sodium 1,000 mg/ (Dextrose/Water) 100 mls @ 200 mls/hr IV Q24H FARIDE[facility]; Protocol Stop: 07/18/18 17:01 Last Infusion: 06/19/18 18:20 Dose: Infused Documented by: Vancomycin HCl 1.5 gm/ (Dextrose/Water) 500 mls @ 175 mls/hr IV Q24H [facility]IDE[facility]; Protocol Stop: 07/20/18 10:01 Last Admin: 06/20/18 10:20 Dose: 175 mls/hr Documented by: Imipramine HCl (Tofranil) 50 mg PO BID [facility] Stop: 07/19/18 09:16 Last Admin: 06/19/18 22:47 Dose: 50 mg Documented by: Senna/Docusate Sodium (Senokot-S) 1 tab PO BID [facility] Stop: 07/19/18 09:01 Last Admin: 06/19/18 22:47 Dose: 1 tab Documented by: Discontinued Medications Albuterol Sulfate (Albuterol Sulfate 2.5 Mg/0.5ml) 2.5 mg IH ONCE ONE Stop: 06/18/18 14:34 Last Admin: 06/18/18 14:54 Dose: 2.5 mg Documented by: Albuterol/Ipratropium (Duoneb 2.5-0.5mg/3ml Soln) 3 ml IH Q6H FARIDE[facility] Stop: 07/19/18 08:46 Last Admin: 06/19/18 08:54 Dose: Not Given Documented by: Furosemide (Lasix) 60 mg IV ONCE ONE Stop: 06/18/18 14:54 Last Admin: 06/18/18 15:27 Dose: 60 mg Documented by: Levofloxacin/Dextrose (Levaquin) 500 mg in 100 mls @ 100 mls/hr IV ONCE [facility]ARIDE[facility]; Protocol Stop: 07/18/18 15:01 Last Infusion: 06/18/18 16:26 Dose: Infused Documented by: Sodium Chloride (Sodium Chloride 0.9%) 1,000 mls @ 150 mls/hr IV .Q6H40M PRN PRN Reason: HYDRATION Stop: 07/18/18 17:14 Last Infusion: 06/20/18 02:30 Dose: Infused Documented by: Imipramine HCl (Tofranil) 100 mg PO BID [facility]IDE[facility] Stop: 07/18/18 21:01 Last Admin: 06/19/18 14:14 Dose: Not Given Documented by: Influenza Virus Vaccine Quadrival (Flulaval Quad [id number] Syringe) 60 mcg IM .ONCE ONE Stop: 06/19/18 09:01 Last Admin: 06/19/18 09:38 Dose: 60 mcg Documented by: Morphine Sulfate (Morphine Sulfate) 2 mg IV ONCE STA Stop: 06/20/18 09:14 Last Admin: 06/20/18 09:20 Dose: 2 mg Documented by: Sodium Bicarbonate (Sodium Bicarbonate 8.4% Syringe) 50 meq IV ONCE ONE Stop: 06/20/18 08:49 Last Admin: 06/20/18 09:02 Dose: 50 meq Documented by: - Disposition Disposition: Short Term Hospital Inpatient Condition: Serious Discharge Date: 06/20/18
[2018-06-20 12:50] VITALS: BP 152/75
== END 2018-06-20 11:32 | disposition short-term general hospital (02) | DRG 871 ==
LOC: ER 13:06 → MS 15:27 → SCU 06-20 08:24
PROVIDERS: ADMIT Family Medicine; ATTEND Family Medicine
DX: J18.1 Lobar pneumonia, unspecified organism; J44.9 Chronic obstructive pulmonary disease, unspecified; N17.9 Acute kidney failure, unspecified; Z68.43 Body mass index [BMI] 50.0-59.9, adult; J96.21 Acute and chronic respiratory failure with hypoxia; A41.01 Sepsis due to Methicillin susceptible Staphylococcus aureus; I10 Essential (primary) hypertension; E66.2 Morbid (severe) obesity with alveolar hypoventilation; E87.2 Acidosis; R78.81 Bacteremia
CPT/HCPCS: 36415; 36600; 71010; 71020; 71045; 71046; 80053; 82550; 82803; 83519; 83880; 84484; 85007; 85025; 87040; 87077; 87186; 87400; 87449; 90686; 93005; 94640; 94660; 94664; 94760; 99285